=== PATIENT | female | born 1980 | race Caucasian/White ===

== ENCOUNTER 2016-11-26 13:37 | Emergency (ER) | payer SELFPAY ==
[2016-11-26 14:03] VITALS: BP 113/65; PULSE 78; TEMP 98; BMI 34.0
--- NOTE | 2016-11-26 14:46 | PDOC ---
History of Present Illness - General Chief Complaint: Sore Throat Stated Complaint: SORE THROAT Time Seen by Provider: 11/26/16 14:07 History Source: Patient Exam Limitations: No Limitations - History of Present Illness Initial Comments: 11/26/16 14:46 Patient came to emergency department for evaluation of sore throat pain, general body aches, and intermittent fevers chills this past week. daughter was diagnosed by swab with influenza last week, did not give Tamiflu as patient symptoms resolved within a few days. has been taking Tylenol and [id number] pain medications. has suffered frequently from tonsillitis and wonders if she has a recurrent strep throat. Timing/Duration: unsure Severity: mild, moderate Modifying Factors: improves with: cold therapy, medication Associated Symptoms: reports: cough, fever/chills, loss of appetite, malaise Past History - Travel Traveled outside of the country in the last 30 days: No Close contact w/someone who was outside of country & ill: No - Past Medical History Allergies/Adverse Reactions: Allergies Allergy/AdvReac Type Severity Reaction Status Date / Time Penicillins Allergy Intermediate Hives Verified 11/26/16 14:00 Home Medications: Ambulatory Orders Tobramycin 0.3% Ophth Soln [Tobrex Ophthalmic Solution -] 2 drop OD Q6HPO #1 drops MDD 4 05/30/16 Asthma: Yes Suicide Attempt (Hx): No Thyroid Disease: No - Immunization History Immunization Up to Date: Yes - Psycho/Social/Smoking Cessation Hx Anxiety: No Suicidal Ideation: No Smoking History: Current some day smoker Have you smoked in the past 12 months: Yes Number of Cigarettes Smoked Daily: 4 Information on smoking cessation initiated: No 'Breaking Loose' booklet given: 02/13/14 Hx Alcohol Use: No Drug/Substance Use Hx: No Substance Use Type: None Review of Systems - Review of Systems Able to Perform ROS?: Yes Is the patient limited Spanish proficient: Yes Constitutional: Yes: Symptoms Reported, See HPI, Fever, Loss of Appetite, Malaise HEENTM: Yes: Symptoms Reported, See HPI, Nose Pain, Nose Congestion Respiratory: Yes: Symptoms reported, See HPI, Cough, Wheezing Integumentary: Yes: Symptoms Reported All Other Systems: Reviewed and Negative *Physical Exam - Vital Signs Last Vital Signs Temp Pulse Resp BP Pulse Ox 98 F 78 19 113/65 97 11/26/16 14:00 11/26/16 14:00 11/26/16 14:00 11/26/16 14:00 11/26/16 14:00 - Physical Exam General Appearance: Yes: Appropriately Dressed HEENT: positive: Pharyngeal Erythema (with some exudate noted on posterior pharynx), Nasal Congestion, Rhinorrhea. negative: TMs Normal (congested, but landmarks visualized) Neck: positive: Tender, Supple, Lymphadenopathy (R), Lymphadenopathy (L) Respiratory/Chest: positive: Lungs Clear, Normal Breath Sounds Cardiovascular: positive: Regular Rate Gastrointestinal/Abdominal: positive: Soft. negative: Tender Musculoskeletal: positive: Normal Inspection Extremity: positive: Normal Capillary Refill, Normal Inspection, Normal Range of Motion. negative: Tender Integumentary: positive: Dry, Warm, Pale Neurologic: positive: oncology physician II-XII NML intact, Fully Oriented, Alert, Normal Mood/ Affect, Normal Response, Motor Strength 5/5 Medical Decision Making - Medical Decision Making 11/26/16 15:22 Rapid strep test negative. Will treat conservatively as mother stated has no insurance to pay for Tamiflu. Understands is probable influenza and understands need for quarantine and conservative treatment. *DC/Admit/Observation/Transfer Diagnosis at time of Disposition: Upper respiratory infection, viral - Discharge Dispostion Disposition: HOME Condition at time of disposition: Stable Admit: No - Patient Instructions Printed Discharge Instructions: DI for Viral Upper Respiratory Infection -- Adult Additional Instructions: Rest, drink lots of fluids: Teas, water, soups, Pedialyte Saltwater gargles Steamy showers/seem to face break up mucus Avoid contact with others until fevers and cough resolved Lots of handwashing and good hygiene Continue [id number]-[id number] medications for symptomatic relief Tylenol or Motrin for fever and pain Followup with private physician in one to 2 days as needed Return to emergency department for worsened symptoms, fevers, dehydration - Post Discharge Activity Work/School Note: Back to Work
== END 2016-11-26 15:25 | disposition home or self-care (01) ==
LOC: JERFT 13:37
DX: J06.9 Acute upper respiratory infection, unspecified (principal); B97.89 Other viral agents as the cause of diseases classified elsewhere
CPT/HCPCS: 87070; 87077; 87430; 99281-25

== ENCOUNTER 2017-07-17 04:31 | Observation (INO) | payer MEDICARE ==
[2017-07-17] MEDS ORDERED: ALBUTEROL SO4 2.5/IPRATROPIUM 0.5 INH SOL 3 ML VIAL.NEB. NEB ONE ×2 (04:59→05:18)
[2017-07-17] MEDS ORDERED: DEXAMETHASONE LIQUID 0.5 MG/5 ML 240 ML BULK BOTTLE PO ONE (04:59)
--- NOTE | 2017-07-17 05:01 | PDOC ---
History of Present Illness - General Stated Complaint: DIFFICULTY BREATHING Time Seen by Provider: 07/17/17 04:43 - History of Present Illness Initial Comments: 07/17/17 05:00 Patient is a 37 y.o. female with a PMH of Asthma (cannot recall date of last exacerbation) who presents c/o shortness of breath. 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 Patient states she tried her Flovent inhaler but it provided little relief. Patient denies any subjective fevers but does endorse chills. Past History - Past Medical History Allergies/Adverse Reactions: Allergies Allergy/AdvReac Type Severity Reaction Status Date / Time Penicillins Allergy Intermediate Hives Verified 07/17/17 05:05 Home Medications: Ambulatory Orders Tobramycin 0.3% Ophth Soln [Tobrex Ophthalmic Solution -] 2 drop OD Q6HPO #1 drops MDD 4 05/30/16 Asthma: Yes Thyroid Disease: No - Immunization History Immunization Up to Date: Yes - Suicide/Smoking/Psychosocial Hx Smoking History: Current some day smoker Have you smoked in the past 12 months: Yes Number of Cigarettes Smoked Daily: 4 'Breaking Loose' booklet given: 02/13/14 Hx Alcohol Use: No Drug/Substance Use Hx: No Substance Use Type: None Review of Systems - Review of Systems Constitutional: Yes: Chills. No: Fever Respiratory: Yes: Shortness of Breath. No: Cough Cardiac (ROS): No: Chest Pain *Physical Exam - Physical Exam General Appearance: Yes: Nourished, Obese HEENT: positive: Normal ENT Inspection. negative: TM Bulging, TM Dull, TM Erythema Neck: positive: Trachea midline, Supple Respiratory/Chest: positive: Wheezing (B/L wheezing in upper lung osborne). negative: Accessory Muscle Use, Labored Respiration, Crackles, Rhonchi Cardiovascular: positive: S1, S2 Neurologic: positive: Fully Oriented, Alert Medical Decision Making - Medical Decision Making 07/17/17 05:03 Patient is a 37 y.o. female who presents with shortness of breath with PLAN: 1. Duo Nebs x2 2. Dexamethasone 3. CXR Reassess; likely disposition is home following symptomatic improvement 07/17/17 07:22 Patient awaiting CXR. Patient signed out to Dr. Swanson (Resident) and Dr. Gustafson (Attending). *DC/Admit/Observation/Transfer Diagnosis at time of Disposition: Shortness of breath
[2017-07-17] MEDS ORDERED: DEXAMETHASONE SOD PHOSPHATE 10 MG/1 ML VIAL ONE (05:19)
--- NOTE | 2017-07-17 06:07 | PDOC ---
Attending Attestation - Resident Resident Name: Katherine Vale - HPI HPI: 07/17/17 06:07 Pt comes with wosening SOB that began today at work. 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 - Physicial Exam PE: 07/17/17 21:33 agree with resident exam - Medical Decision Making 07/17/17 21:33 pt will be signed out to the day tea, They will follow CXR and reevaluate and disposition the patient after treatment.
[2017-07-17] MEDS ORDERED: GABAPENTIN 100 MG CAPSULE (FP) ONE (06:20)
--- NOTE | 2017-07-17 07:19 | PDOC ---
*Physical Exam - Vital Signs Last Vital Signs Temp Pulse Resp BP Pulse Ox 98.6 F 102 H 22 140/73 93 L 07/17/17 05:05 07/17/17 05:05 07/17/17 05:05 07/17/17 05:05 07/17/17 05:05 ED Treatment Course - LABORATORY CBC & Chemistry Diagram: 07/17/17 12:35 07/17/17 12:35 - ADDITIONAL ORDERS Additional order review: Laboratory Results 07/17/17 06:50 Urine HCG, Qual Negative 07/17/17 05:15 Influenza Types A,B Antigen (BARB) - Final Nasopharyngeal Swab - Final - Medications Given in the ED: ED Medications Discontinued Medications Generic Name Dose Route Start Last Admin Trade Name Freq PRN Reason Stop Dose Admin Albuterol/Ipratropium 2 amp 07/17/17 04:59 07/17/17 05:31 Duoneb - NEB 07/17/17 05:00 2 amp ONCE ONE Administration Dexamethasone 10 mg 07/17/17 04:59 07/17/17 05:31 Decadron Liquid - PO 07/17/17 05:00 10 mg ONCE ONE Administration Medical Decision Making - Medical Decision Making 07/17/17 07:19 37 y.o. female with a PMH of Asthma (cannot recall date of last exacerbation) who presents c/o shortness of breath. Pending Chest X-ray. If negative, pt can be discharged 07/17/17 08:25 Given hx/pe, will order abg and carboxyhemoglobin levels to r/o CO poisoning 07/17/17 10:07 Carboxyhemoglobin levels and CXR questionable. Will order CT chest w/o contrast 07/17/17 11:[address]- patchy, groundglass opacities. Small mediastinal lymph nodes. Call placed to Dr. Navarro. Concern for hypersensitivity pneumonitis vs sarcoidosis. He will come evaluate the patient. Would like to observe the patient for 24 hrs and put patient on standing steroids 07/17/17 12:46 Patient put on IV solumederol 40 bid. Labs drawn. Call placed to hospitalist 07/17/17 12:58 Patient accepted by hospitalist *DC/Admit/Observation/Transfer Diagnosis at time of Disposition: Shortness of breath - Discharge Dispostion Admit: Yes
[2017-07-17 09:28] LABS: ARTERIAL BLD GAS O2 SATURATION 95.9 % (90-98.9); ARTERIAL BLOOD GAS BASE EXCESS -1.1 meq/l (-2-2); ARTERIAL BLOOD GAS HCO3 22.7 meq/L (22-26)
[2017-07-17 09:29] LABS: ALLENS TEST POSITIVE; ART PUNCT SITE LEFT RADIAL; ARTERIAL BLOOD GAS PO2 77.5 mmHg (80-100); LPM/O2% 21%; PT. ON O2? NO; TYPE OF O2 ROOM AIR
[2017-07-17 09:30] LABS: METHEMOGLOBIN 0.7 % (0.4-1.5)
[2017-07-17] MEDS ORDERED: ACETAMINOPHEN 325 MG TABLET (FP) PO ONE (09:51)
[2017-07-17] MEDS ORDERED: ACETAMINOPHEN 325 MG TABLET (FP) ONE (09:58)
--- NOTE | 2017-07-17 12:38 | CON.PULM ---
Consult Consult Specialty:: PULM/CCM Referred by:: CECILIO Reason for Consultation:: SOB - History of Present Illness Chief Complaint: SOB History of Present Illness: 37 F, questionable Asthma (not likely) and history of PNA at [facility] last year ( only had CXR and no CT imaging). Works at a [employer] on [facility] and [employer] at [employer]. Reports being exposed to mold at work in [employer] and significant smoke at the [employer]. Travel to the [facility] a few months ago with her sister. They did use hot tubs and apparently the sister developed an ear infection that the doctor said was due to the hot tub. She did not have overt fever or chills. No hemoptysis. No travel outside of the country. No direct sick contacts. She lives with her sister in the same domicile for years. No evidence of chronic/stagnant water sources. CT chest : scattered bilateral areas of ground glass infiltrates with some non- specific areas of nodules. Non-specific mildly enlarged mediastinal lymph nodes. - History Source History Provided By: Patient Limitations to Obtaining History: No Limitations - Alcohol/Substance Use Hx Alcohol Use: No - Smoking History Smoking history: Current some day smoker Have you smoked in the past 12 months: Yes Aproximately how many cigarettes per day: 4 Home Medications - Allergies Allergies/Adverse Reactions: Allergies Allergy/AdvReac Type Severity Reaction Status Date / Time Penicillins Allergy Intermediate Hives Verified 07/17/17 05:05 - Home Medications Home Medications: Ambulatory Orders Tobramycin 0.3% Ophth Soln [Tobrex Ophthalmic Solution -] 2 drop OD Q6HPO #1 drops MDD 4 05/30/16 Review of Systems - Review of Systems Constitutional: denies: Chills, Fever, Loss of Appetite, Malaise, Night Sweats, Unintentional Wgt. Loss, Weakness Eyes: reports: No Symptoms HENT: reports: No Symptoms Neck: reports: No Symptoms Cardiovascular: reports: Shortness of Breath. denies: Chest Pain, Edema, Palpitations Respiratory: reports: Cough, Snoring, SOB, SOB on Exertion, Wheezing. denies: Hemoptysis Gastrointestinal: reports: No Symptoms Genitourinary: reports: No Symptoms Breasts: reports: No Symptoms Reported Musculoskeletal: reports: No Symptoms Integumentary: reports: No Symptoms Neurological: reports: No Symptoms Endocrine: reports: No Symptoms Hematology/Lymphatic: reports: No Symptoms Psychiatric: reports: No Symptoms Physical Exam Vital Sings: Vital Signs Temperature 98.6 F 07/17/17 05:05 Pulse Rate 77 07/17/17 12:16 Respiratory Rate 16 07/17/17 12:16 Blood Pressure 101/63 07/17/17 12:16 O2 Sat by Pulse Oximetry (%) 99 07/17/17 12:16 Constitutional: Yes: No Distress Eyes: Yes: Conjunctiva Clear, EOM Intact HENT: Yes: Atraumatic, Normocephalic Neck: Yes: Supple, Trachea Midline Cardiovascular: Yes: Regular Rate and Rhythm Respiratory: Yes: CTA Bilaterally, Cough. No: Accessory Muscle Use, Dullness, Rales, Rhonchi, Stridor, Tachypnea, Wheezes ...Inspection: Yes: WNL ...Clubbing: No Gastrointestinal: Yes: Normal Bowel Sounds, Soft, Abdomen, Obese Renal/: Yes: WNL Musculoskeletal: Yes: WNL Extremities: Yes: WNL Edema: No Peripheral Pulses WNL: Yes Integumentary: Yes: WNL Neurological: Yes: WNL, Alert, Oriented ...Motor Strength: WNL Psychiatric: Yes: WNL, Alert, Oriented Labs: ABG Results ABG pH 7.40 (7.35-7.45) 07/17/17 09:18 ABG pCO2 at Pt Temp 37.3 mmHg (35-45) 07/17/17 09:18 ABG pO2 at Pt Temp 77.5 mmHg (80-100) L 07/17/17 09:18 ABG HCO3 22.7 meq/L (22-26) 07/17/17 09:18 ABG O2 Sat (Measured) 95.9 % (90-98.9) 07/17/17 09:18 ABG O2 Content 18.7 % vol (15-22) 07/17/17 09:18 ABG Base Excess -1.1 meq/l (-2-2) 07/17/17 09:18 Imaging - Results Chest X-ray: Report Reviewed, Image Reviewed Cat Scan: Report Reviewed, Image Reviewed Problem List - Problems (1) Shortness of breath Code(s): R06.02 - SHORTNESS OF BREATH (2) Pneumonitis Code(s): J18.9 - PNEUMONIA, UNSPECIFIED ORGANISM (3) Lung nodule, multiple Code(s): R91.8 - OTHER NONSPECIFIC ABNORMAL FINDING OF LUNG FIELD Assessment/Plan Trial of steroids : may be a chronic process based on her history of PNA last year. Suspect at least subacute due to findings of non-specific nodules on imaging. Can give Medrol 40mg Q12h BD TX Would monitor off ABX for now Follow peripheral eosinophil count Serum IgE as an outpatient No smoking counseled -> reports she quit about 1 month ago. O2 as needed Observation monitoring would be appropriate. Will need follow up imaging as an outpatient. Patient also advised to obtain any imaging from [facility] after discharge. Will follow. Thank you. Dr Navarro
[2017-07-17 12:45] LABS: MCH 28.9 pg (25.7-33.7); MCHC 33.5 g/dl (32.0-36.0); MEAN PLT VOLUME 9.1 fl (7.5-11.1); PLATELET COUNT 320 K/MM3 (134-434); RDW 13.6 % (11.6-15.6); WHITE BLOOD COUNT 13.8 K/mm3 (4.0-10.0)
[2017-07-17] MEDS: methylPREDNISolone NA SUCC 40 MG/1 ML VIAL IVPB SCH ×2 (12:50→22:49)
[2017-07-17] MEDS ORDERED: methylPREDNISolone NA SUCC 40 MG/1 ML VIAL ONE ×2 (12:52→22:46)
[2017-07-17 13:19] LABS: ALBUMIN 3.8 g/dl (3.4-5.0); ALK PHOS 115 U/L (45-117); ANION GAP 9 (8-16); BILIRUBIN,TOTAL 0.4 mg/dL (0.2-1.0); CALCIUM 9.3 mg/dL (8.5-10.1); CO2 25 mmol/L (21-32); CREATININE 0.6 mg/dL (0.55-1.02); GLUCOSE,RANDOM 117 mg/dL (74-106); SGOT/AST 14 U/L (15-37); SGPT/ALT 25 U/L (12-78); TOT PROT 8.2 g/dl (6.4-8.2)
--- NOTE | 2017-07-17 13:44 | HP ---
CHIEF COMPLAINT: difficulty breathing, acute asthma exacerbation PCP: HISTORY OF PRESENT ILLNESS: Patient is a 37 year old female with a significant past medical history of of asthma who presents to the ED complaining of shortness of breath and wheezing. 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 Patient attempted to reliever the shortness of breath with her Flovent inhaler but provided very little relief. Patient also reports being exposed to mold at work in [facility]. Denies hemoptysis. Patient denies any subjective fevers but does endorse chills. She is a former smoker but just quick 3 weeks ago. She denies recent travel. No direct sick contacts. ER course was notable for: (1) SoluMedrol 40mg Q12h (2) CT scan with patchy nodular and groundglass opacification throughout both lungs, right >left, uncertain etiology (3) WBC 13.8, afebrile (4) 93% room air on admission Recent Travel: PAST MEDICAL HISTORY: PAST SURGICAL HISTORY: Social History: Smoking: recently quit 3 weeks ago Alcohol: denies Drugs: denies Family History: Allergies Penicillins Allergy (Intermediate, Verified 07/17/17 05:05) Hives HOME MEDICATIONS: Home Medications Medication Instructions Recorded Tobramycin 0.3% Ophth Soln [Tobrex 2 drop OD Q6HPO #1 drops MDD 4 05/30/16 Ophthalmic Solution -] REVIEW OF SYSTEMS CONSTITUTIONAL: Absent: fever, chills, diaphoresis, generalized weakness, malaise, loss of appetite, weight change HEENT: Absent: rhinorrhea, nasal congestion, throat pain, throat swelling, difficulty swallowing, mouth swelling, ear pain, eye pain, visual changes CARDIOVASCULAR: Absent: chest pain, syncope, palpitations, irregular heart rate, lightheadedness , peripheral edema GASTROINTESTINAL: Absent: abdominal pain, abdominal distension, nausea, vomiting, diarrhea, constipation, melena, hematochezia GENITOURINARY: Absent: dysuria, frequency, urgency, hesitancy, hematuria, flank pain, genital pain MUSCULOSKELETAL: Absent: myalgia, arthralgia, joint swelling, back pain, neck pain SKIN: Absent: rash, itching, pallor HEMATOLOGIC/IMMUNOLOGIC: Absent: easy bleeding, easy bruising, lymphadenopathy, frequent infections ENDOCRINE: Absent: unexplained weight gain, unexplained weight loss, heat intolerance, cold intolerance NEUROLOGIC: Absent: headache, focal weakness or paresthesias, dizziness, unsteady gait, seizure, mental status changes, bladder or bowel incontinence PSYCHIATRIC: Absent: anxiety, depression, suicidal or homicidal ideation, hallucinations. PHYSICAL EXAMINATION GENERAL: Awake, alert, and fully oriented, in no acute distress. HEAD: Normal with no signs of trauma. EYES: Pupils equal, round and reactive to light, extraocular movements intact, sclera anicteric, conjunctiva clear. No lid lag. EARS, NOSE, THROAT: Ears normal, nares patent, oropharynx clear without exudates. Moist mucous membranes. NECK: Normal range of motion, supple without lymphadenopathy, JVD, or masses. LUNGS:+ wheezing throughout lung osborne, tolerating room air HEART: Regular rate and rhythm, normal S1 and S2 without murmur, rub or gallop. ABDOMEN: Soft, nontender, not distended, normoactive bowel sounds, no guarding, no rebound, no masses. No hepatomegaly or splenomegaly. MUSCULOSKELETAL: Normal range of motion at all joints. No bony deformities or tenderness. No CVA tenderness. UPPER EXTREMITIES: 2+ pulses, warm, well-perfused. No cyanosis. No clubbing. No peripheral edema. LOWER EXTREMITIES: 2+ pulses, warm, well-perfused. No calf tenderness. No peripheral edema. NEUROLOGICAL: Cranial nerves II-XII intact. Normal speech. Normal gait. PSYCHIATRIC: Cooperative. Good eye contact. Appropriate mood and affect. SKIN: Warm, dry, normal turgor, no rashes or lesions noted, normal capillary refill. ASSESSMENT/PLAN: Patient is a 37 year old female with a significant past medical history of of asthma who presents to the ED complaining of shortness of breath and wheezing. Patient presently works at a [employer] and states that there was alot of smoke in the lounge overnight from [employer] pipes. Patient attempted to relieve the shortness of breath with her Flovent inhaler but provided very little relief. Patient also reports being exposed to mold at work in [facility]. Denies hemoptysis. Patient denies any subjective fevers but does endorse chills. She is a former smoker but just quick 3 weeks ago. She denies recent travel. No direct sick contacts. Pulmonary Acute asthma exacerbation/Shortness of breath, acute on chronic A/P: Monitor patient on room air, supplemental oxygen as needed On Solumedrol 40mg q12 IVPB [address] scan with patchy nodular and groundglass opacification throughout both lungs , right >left, uncertain etiology WBC 13.8, but remains afebrile, monitor off antibiotics As per pulmonary, will need IgE monitoring outpatient as well as follow up imaging of CT scan Monitor labs, respiratory status F.E.N. Fluids: tolerating PO Electrolytes: monitor Nutrition: regular diet Prophylaxis DVT: LOS <48 hours GI: Protonix while on steriods Disposition: observation. full code. Visit type - Emergency Visit Emergency Visit: Yes ED Registration Date: 07/17/17 Care time: The patient presented to the Emergency Department on the above date and was hospitalized for further evaluation of their emergent condition. - New Patient This patient is new to me today: Yes Date on this admission: 07/17/17 - Critical Care Critical Care patient: No
[2017-07-17 15:37] VITALS: BMI 36.3
[2017-07-18 07:49] LABS: MCH 28.6 pg (25.7-33.7); MCHC 32.9 g/dl (32.0-36.0); MEAN PLT VOLUME 9.9 fl (7.5-11.1); PLATELET COUNT 313 K/MM3 (134-434); RDW 13.6 % (11.6-15.6); WHITE BLOOD COUNT 26.1 K/mm3 (4.0-10.0)
[2017-07-18] MEDS ORDERED: ACETAMINOPHEN 650 MG/20.3 ML ORAL SOLUTION (CUPS) PO PRN (07:56)
[2017-07-18 08:43] LABS: ANION GAP 11 (8-16); CALCIUM 9.2 mg/dL (8.5-10.1); CO2 22 mmol/L (21-32); CREATININE 0.5 mg/dL (0.55-1.02); GLUCOSE,RANDOM 122 mg/dL (74-106); MAGNESIUM 2.2 mg/dL (1.8-2.4)
[2017-07-18 09:29] LABS: PLATELET ESTIMATE ADEQUATE (NORMAL); TOTAL CELLS COUNTED 100
[2017-07-18] MEDS ORDERED: PANTOPRAZOLE 40 MG TABLET (FP) PO SCH (10:00)
[2017-07-18] MEDS: methylPREDNISolone NA SUCC 40 MG/1 ML VIAL IVPB SCH (10:10)
[2017-07-18 12:52] LABS: BASOPHIL 0.4 % (0-2.0); EOSINOPHIL 0.1 % (0-4.5); MCH 28.5 pg (25.7-33.7); MCHC 32.7 g/dl (32.0-36.0); MEAN PLT VOLUME 9.5 fl (7.5-11.1); NEUTROPHILS 87.9 % (42.8-82.8); PLATELET COUNT 349 K/MM3 (134-434); RDW 13.4 % (11.6-15.6); WHITE BLOOD COUNT 27.5 K/mm3 (4.0-10.0)
--- NOTE | 2017-07-18 12:57 | PN ---
Progress Note, Physician History of Present Illness: pulmonary alert,nad,sob,min cough - Current Medication List Current Medications: Active Medications Acetaminophen (Tylenol Oral Solution -) 650 mg PO Q4H PRN PRN Reason: FEVER OR PAIN Methylprednisolone Sodium Succinate (Solu-Medrol -) 40 mg IVPB BID [facility] Last Admin: 07/18/17 10:10 Dose: 40 mg Pantoprazole Sodium (Protonix -) 40 mg PO DAILY [facility] Last Admin: 07/18/17 10:10 Dose: 40 mg - Objective Vital Signs: Vital Signs Temperature 98.1 F 07/18/17 11:42 Pulse Rate 66 07/18/17 11:42 Respiratory Rate 20 07/18/17 11:42 Blood Pressure 109/74 07/18/17 11:42 O2 Sat by Pulse Oximetry (%) 98 07/18/17 11:42 Constitutional: Yes: Well Nourished, Calm Eyes: Yes: WNL HENT: Yes: WNL Neck: Yes: WNL Cardiovascular: Yes: Regular Rate and Rhythm, S1, S2 Respiratory: Yes: CTA Bilaterally Gastrointestinal: Yes: Normal Bowel Sounds, Soft Extremities: Yes: WNL Edema: No Labs: CBC, BMP 07/18/17 06:00 Assessment/Plan Imaging - Results Chest X-ray: Report Reviewed, Image Reviewed Cat Scan: Report Reviewed, Image Reviewed Problem List - Problems (1) Shortness of breath Code(s): R06.02 - SHORTNESS OF BREATH (2) Pneumonitis Code(s): J18.9 - PNEUMONIA, UNSPECIFIED ORGANISM (3) Lung nodule, multiple Code(s): R91.8 - OTHER NONSPECIFIC ABNORMAL FINDING OF LUNG FIELD Assessment/Plan Prednisone 60mg po daily BD prn Follow peripheral eosinophil count Serum IgE level No smoking counseled -> reports she quit about 1 month ago. O2 as needed Will need follow up imaging as an outpatient. Pfts outpatient DR CASAS
--- NOTE | 2017-07-18 13:30 | DS ---
Physical Exam: SUBJECTIVE: Patient seen and examined at the bedside. She denies any shortness of breath. Does verbalize anxiety overnight. OBJECTIVE: Vital Signs Period Temp Pulse Resp BP Sys/Hunt Pulse Ox Last 24 Hr 97.9 F-98.1 F 66-101 17-20 109-148/63-77 93-98 PHYSICAL EXAM GENERAL: Awake, alert, and fully oriented, in no acute distress. HEAD: Normal with no signs of trauma. EYES: Pupils equal, round and reactive to light, extraocular movements intact, sclera anicteric, conjunctiva clear. No lid lag. EARS, NOSE, THROAT: Ears normal, nares patent, oropharynx clear without exudates. Moist mucous membranes. NECK: Normal range of motion, supple without lymphadenopathy, JVD, or masses. LUNGS: No wheezing, no accessory muscle use, comfortable on room air HEART: Regular rate and rhythm, normal S1 and S2 without murmur, rub or gallop. ABDOMEN: Soft, nontender, not distended, normoactive bowel sounds, no guarding, no rebound, no masses. No hepatomegaly or splenomegaly. MUSCULOSKELETAL: Normal range of motion at all joints. No bony deformities or tenderness. No CVA tenderness. UPPER EXTREMITIES: 2+ pulses, warm, well-perfused. No cyanosis. No clubbing. No peripheral edema. LOWER EXTREMITIES: 2+ pulses, warm, well-perfused. No calf tenderness. No peripheral edema. NEUROLOGICAL: Normal speech. Normal gait. PSYCHIATRIC: Cooperative. Good eye contact. Appropriate mood and affect. SKIN: Warm, dry, normal turgor, no rashes or lesions noted, normal capillary refill. LABS Laboratory Results - last 24 hr 07/18/17 07/18/17 07/18/17 06:00 06:00 12:30 WBC 26.1 H D 27.5 H RBC 4.82 4.86 Hgb 13.8 13.8 Hct 42.0 42.3 MCV 87.0 87.0 MCH 28.6 28.5 MCHC 32.9 32.7 RDW 13.6 13.4 Plt Count 313 349 MPV 9.9 9.5 Total Counted 100 Neutrophils % 87.9 H D Neutrophils % (Manual) 90 H Lymphocytes % 8.2 D Lymphocytes % (Manual) 8 Monocytes % 3.4 L Monocytes % (Manual) 2 L Eosinophils % 0.1 D Basophils % 0.4 Platelet Estimate Adequate Sodium 137 Potassium 4.2 Chloride 104 Carbon Dioxide 22 Anion Gap 11 BUN 11 Creatinine 0.5 L Random Glucose 122 H Calcium 9.2 Magnesium 2.2 HOSPITAL COURSE: Date of Admission:07/17/17 Date of Discharge: 07/18/17 ASSESSMENT/PLAN: Patient is a 37 year old female with a significant past medical history of of asthma who presents to the ED complaining of shortness of breath and wheezing. 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 Patient attempted to relieve the shortness of breath with her Flovent inhaler but provided very little relief. Patient also reports being exposed to mold at work in [facility]. Denies hemoptysis. Patient denies any subjective fevers but does endorse chills. She is a former smoker but just quick 3 weeks ago. She denies recent travel. No direct sick contacts. Pulmonary Acute asthma exacerbation/Shortness of breath, acute on chronic - improved A/P: Lungs sound improved after initiating steroid therapy, no longer wheezing Monitor patient on room air, which she has been tolerating, no need for supplemental oxygen/oxygen sats on room air 96% Respiratory pre and post as per RN remains at 96% room air. Will discharge on a [address] scan with patchy nodular and groundglass opacification throughout both lungs , right >left, uncertain etiology - to be repeated as an outpatient WBC 27, likely secondary to high dose steriods. She remains afebrile, monitor off antibiotics, repeat labs with new PCP after steriods complete As per pulmonary, will need IgE monitoring outpatient as well as follow up imaging of CT scan, pt aware and in agreement Disposition: Cleared by pulmonary for discharge. Full code. Minutes to complete discharge: 60 Discharge Summary Reason For Visit: SOB Current Active Problems Lung nodule, multiple (Acute) Pneumonitis (Acute) Shortness of breath (Acute) Condition: Improved - Instructions Diet, Activity, Other Instructions: Ms. Nayak: Please take the Prednisone as follows and do not stop taking abruptly. Prednisone must be tapered off slowly (10 day taper) so that you do not have symptoms: Date: Take: 07/18/2017 Prednisone 60mg tonight at 5pm 07/19/2017 Prednisone 60mg in the morning (9am) 07/20/2017 Prednisone 50mg in the morning (9am) 07/21/2017 Prednisone 50mg in the morning (9am) 07/22/2017 Prednisone 40mg in the morning (9am) 07/23/2017 Prednisone 40mg in the morning (9am) 07/24/2017 Prednisone 30mg in the morning (9am) 07/25/2017 Prednisone 30mg in the morning (9am) 07/26/2017 Prednisone 20mg in the morning (9am) 07/27/2017 Prednisone 10mg in the morning (9am) - this is the last dose Please follow up with Dr. Sauer, your new PCP and Dr. Mulligan (medical records receptionist). You will need a repeat CT scan in about 3 weeks. Your medications have been called to [facility]: The cost for the Prednisone is $20.00 dollars and the cost for the Albuterol pump is $55.00. Please call me with any questions that you may have. [facility] FOR[facility] ANTHROPOLOGIST [facility] [phone] Referrals: Andrei Goodrich MD [Staff Physician] - Vince Mulligan MD [Staff Physician] - Jeniffer Frank MD [Staff Physician] - Disposition: HOME - Home Medications Comprehensive Discharge Medication List: Ambulatory Orders Tobramycin 0.3% Ophth Soln [Tobrex Ophthalmic Solution -] 2 drop OD Q6HPO #1 drops MDD 4 05/30/16 Albuterol Sulfate Inhaler - [Ventolin HFA Inhaler -] 1 puff IH Q4H #1 inhaler Prednisone See Taper PO DAILY #60 tablet 07/18/17 This patient is new to me today: No Emergency Visit: Yes ED Registration Date: 07/17/17 Care time: The patient presented to the Emergency Department on the above date and was hospitalized for further evaluation of their emergent condition. Critical Care patient: No - Discharge Referral Referred to [facility] Yes Physician Referral: Jeniffer Frank MD ([facility])
[2017-07-18 14:58] VITALS: BP 115/59; PULSE 73; TEMP 98.3
== END 2017-07-18 15:41 | disposition home or self-care (01) ==
LOC: JER 04:31 → JERBED 12:59 → J5S 07-18 12:12
PROVIDERS: ADMIT Internal Medicine; ATTEND Nurse Practitioner Family
PROC: 3E0333Z Introduction of Anti-inflammatory into Peripheral Vein, Percutaneous Approach (ICD-10-PCS; principal; 2017-07-17)
PROC: 3E0F7GC Introduction of Other Therapeutic Substance into Respiratory Tract, Via Natural or Artificial Opening (ICD-10-PCS; 2017-07-17)
DX: J18.9 Pneumonia, unspecified organism (principal); R06.02 Shortness of breath; R91.8 Other nonspecific abnormal finding of lung field; F17.210 Nicotine dependence, cigarettes, uncomplicated; Z88.0 Allergy status to penicillin; J45.909 Unspecified asthma, uncomplicated
CPT/HCPCS: 36415; 36600; 71020-TC; 71250-TC; 80048; 80053; 82375; 82803; 83050; 83735; 84703; 85025; 85027; 87804; 94640; 94761; 96374; 99285-25; G0378

== ENCOUNTER 2017-07-31 13:14 | Emergency (ER) | payer MEDICARE, OTHER ==
[2017-07-31 14:18] VITALS: BP 108/62; PULSE 88; TEMP 98.4; BMI 37.8
[2017-07-31] MEDS ORDERED: IBUPROFEN 600 MG TABLET (FP) PO ONE ×2 (15:33→15:36)
--- NOTE | 2017-07-31 15:36 | PDOC ---
History of Present Illness - General Chief Complaint: Sore Throat Stated Complaint: SORE THROAT Time Seen by Provider: 07/31/17 14:52 History Source: Patient Exam Limitations: No Limitations - History of Present Illness Initial Comments: 07/31/17 15:35 Chief complaint: Sore throat, right ear pain 2 days History of present illness: Patient is a 37-year-old female with a history of asthma here today complaining of a severe sore throat and right ear pain 2 days. Patient also reports swelling lymph nodes of her neck. Patient denies any nasal congestion, cough, nausea, vomiting or diarrhea. Denies any chance of . Patient has been around her sister has been ill with similar symptoms. Timing/Duration: getting worse Severity: moderate Associated Symptoms: reports: other (right ear pain, sore throat x 2 days ) Past History - Past Medical History Allergies/Adverse Reactions: Allergies Allergy/AdvReac Type Severity Reaction Status Date / Time Penicillins Allergy Intermediate Hives Verified 07/31/17 14:18 Home Medications: Ambulatory Orders Azithromycin [Zithromax 250mg Tablets -] 250 mg PO UTDICT #6 tab 07/31/17 Prednisone [Deltasone -] 20 mg PO DAILY 07/31/17 Asthma: Yes Thyroid Disease: No - Immunization History Immunization Up to Date: Yes - Suicide/Smoking/Psychosocial Hx Smoking History: Never smoked Have you smoked in the past 12 months: Yes Number of Cigarettes Smoked Daily: 0 If you are a former smoker, when did you quit?: 06/12/2017 Information on smoking cessation initiated: No 'Breaking Loose' booklet given: 02/13/14 Hx Alcohol Use: No Drug/Substance Use Hx: No Substance Use Type: None Review of Systems - Review of Systems Able to Perform ROS?: Yes Constitutional: No: Symptoms Reported HEENTM: Yes: Ear Pain (right ), Throat Pain Respiratory: No: Symptoms reported Cardiac (ROS): No: Symptoms Reported ABD/GI: No: Symptoms Reported : No: Symptoms Reported Musculoskeletal: No: Symptoms Reported Integumentary: No: Symptoms Reported Neurological: No: Symptoms reported *Physical Exam - Vital Signs Last Vital Signs Temp Pulse Resp BP Pulse Ox 98.4 F 88 16 108/62 100 07/31/17 14:15 07/31/17 14:15 07/31/17 14:15 07/31/17 14:15 07/31/17 14:15 - Physical Exam General Appearance: Yes: Appropriately Dressed HEENT: positive: TMs Normal (left ), Pharyngeal Erythema, Tonsillar Erythema ( with no tonsillar deviation ), TM Bulging (right ), TM Erythema (right ). negative: Tonsillar Exudate, Nasal Congestion, Rhinorrhea, Sinus Tenderness Neck: positive: Lymphadenopathy (R), Lymphadenopathy (L) Respiratory/Chest: positive: Lungs Clear, Normal Breath Sounds. negative: Chest Tender, Respiratory Distress Cardiovascular: positive: Regular Rhythm, Regular Rate, S1, S2 Integumentary: positive: Normal Color Neurologic: positive: Alert, Normal Response, Responsive Medical Decision Making - Medical Decision Making 07/31/17 15:36 Patient is a 37-year-old female with a history of asthma here today complaining of a severe sore throat and right ear pain 2 days. Patient also reports swelling lymph nodes of her neck. Patient denies any nasal congestion, cough, nausea, vomiting or diarrhea. Denies any chance of . Patient has been around her sister has been ill with similar symptoms.Pt. has severe PCN allergy. 'tonsillitis right otitis media PLAN: azithromycin 250 mg 2 tabs today than one daily for following 4 days ibuprofen 600 mg po now *DC/Admit/Observation/Transfer Diagnosis at time of Disposition: Acute tonsillitis Qualifiers: Pharyngitis/tonsillitis etiology: unspecified etiology Qualified Code(s): J03.90 - Acute tonsillitis, unspecified; J03.90 - Acute tonsillitis, unspecified Otitis media Qualifiers: Otitis media type: suppurative Chronicity: acute Laterality: right Recurrence: not specified as recurrent Spontaneous tympanic membrane rupture: without spontaneous rupture Qualified Code(s): H66.001 - Acute suppurative otitis media without spontaneous rupture of ear drum, right ear; H66.001 - Acute suppurative otitis media without spontaneous rupture of ear drum, right ear - Discharge Dispostion Disposition: HOME Condition at time of disposition: Stable - Prescriptions Prescriptions: Azithromycin [Zithromax 250mg Tablets -] 250 mg PO UTDICT #6 tab - Patient Instructions Additional Instructions: Take Ibuprofen as needed as directed by bilingual teacher aide for pain Return to emergency room if symptoms worsen or new symptoms develop Follow up with your Primary care provider within the next few days Drink a lot a fluids and rest Patient voiced understanding of discharge instructions and all questions were answered Thank you for choosing [facility] emergency room for medical needs today
== END 2017-07-31 15:46 | disposition home or self-care (01) ==
LOC: JER 13:14 → JERFT 13:14
DX: J03.90 Acute tonsillitis, unspecified (principal); H66.001 Acute suppurative otitis media without spontaneous rupture of ear drum, right ear
CPT/HCPCS: 99281-25

== ENCOUNTER 2018-03-28 23:45 | Emergency (ER) | payer OTHER ==
[2018-03-29] MEDS ORDERED: IBUPROFEN 400 MG TABLET (FP) PO ONE ×2 (02:22→03:14)
--- NOTE | 2018-03-29 02:36 | PDOC ---
History of Present Illness - General Chief Complaint: Pain Stated Complaint: FOOT INJURY Time Seen by Provider: 03/29/18 01:55 History Source: Patient - History of Present Illness Initial Comments: 03/29/18 03:45 38 year old female with right heel pain worse with prolonged standing and walking x 2 weeks. 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 denies trauma or injury 03/29/18 03:45 Past History - Past Medical History Allergies/Adverse Reactions: Allergies Allergy/AdvReac Type Severity Reaction Status Date / Time Penicillins Allergy Intermediate Hives Verified 03/29/18 02:44 Home Medications: Ambulatory Orders Ibuprofen 800 mg PO QID PRN #20 tablet 03/29/18 Asthma: Yes Thyroid Disease: No - Immunization History Immunization Up to Date: Yes - Suicide/Smoking/Psychosocial Hx Smoking History: Never smoked Have you smoked in the past 12 months: Yes Number of Cigarettes Smoked Daily: 0 If you are a former smoker, when did you quit?: 06/12/2017 'Breaking Loose' booklet given: 02/13/14 Hx Alcohol Use: No Drug/Substance Use Hx: No Substance Use Type: None Review of Systems - Review of Systems Able to Perform ROS?: Yes Is the patient limited Yoruba proficient: No Musculoskeletal: Yes: Other (heel pain) *DC/Admit/Observation/Transfer Diagnosis at time of Disposition: Plantar fasciitis, right - Discharge Dispostion Disposition: HOME Condition at time of disposition: Fair - Prescriptions Prescriptions: Ibuprofen 800 mg PO QID PRN #20 tablet PRN Reason: Moderate Pain Ibuprofen 800 mg PO QID PRN #20 tablet PRN Reason: Moderate Pain - Referrals Referrals: Yesika Roijas DPM [Staff Physician] - - Patient Instructions Printed Discharge Instructions: Plantar Fasciitis Additional Instructions: apply ICE intermittently take ibuprofen every 6 hours as needed for pain follow up with your doctor as soon as possible. - Post Discharge Activity Forms/Work/School Notes: Back to Work
[2018-03-29 02:44] VITALS: BP 111/73; PULSE 85; TEMP 97.9; BMI 37.9
--- NOTE | 2018-03-29 03:12 | PDOC ---
*Physical Exam - Vital Signs Last Vital Signs Temp Pulse Resp BP Pulse Ox 97.9 F 85 18 111/73 98 03/29/18 02:38 03/29/18 02:38 03/29/18 02:38 03/29/18 02:38 03/29/18 02:38 Medical Decision Making - Medical Decision Making 03/29/18 03:12 agree with care from [facility] *DC/Admit/Observation/Transfer Diagnosis at time of Disposition: Plantar fasciitis, right - Discharge Dispostion Disposition: HOME Condition at time of disposition: Fair - Prescriptions Prescriptions: Ibuprofen 800 mg PO QID PRN #20 tablet PRN Reason: Moderate Pain - Referrals Referrals: Yesika Riojas DPM [Staff Physician] - - Patient Instructions Printed Discharge Instructions: Plantar Fasciitis Additional Instructions: apply ICE intermittently take ibuprofen every 6 hours as needed for pain follow up with your doctor as soon as possible. - Post Discharge Activity Forms/Work/School Notes: Back to Work
== END 2018-03-29 05:17 | disposition home or self-care (01) ==
LOC: JER 23:45
DX: M72.2 Plantar fascial fibromatosis (principal); Z87.891 Personal history of nicotine dependence
CPT/HCPCS: 73630-TC-RT-FY; 99281-25

== ENCOUNTER 2019-02-08 09:57 | Emergency (ER) | payer OTHER ==
[2019-02-08 10:12] VITALS: BP 112/55; PULSE 65; TEMP 98.2; BMI 39.4
[2019-02-08] MEDS ORDERED: IBUPROFEN 600 MG TABLET (FP) PO ONE ×2 (10:51→10:55)
--- NOTE | 2019-02-08 10:54 | PDOC ---
History of Present Illness - General Chief Complaint: Injury Stated Complaint: SLIP AND FALL Time Seen by Provider: 02/08/19 10:45 History Source: Patient Exam Limitations: No Limitations - History of Present Illness Initial Comments: 02/08/19 10:53 Slipped while at work, falling onto both knees, worse on the left than the right. Patient states is exquisite pain to knee and upper tibia. Used ice last night and Motrin but has persistent pain that severe e. Occurred: reports: yesterday Severity: reports: moderate, severe Pain Location: reports: lower extremity (left knee ) Method of Injury: Yes: fall Modifying Factors: improves with: cold therapy, pain medication Associated Symptoms (Fall): denies symptoms Past History - Travel Traveled outside of the country in the last 30 days: No Close contact w/someone who was outside of country & ill: No - Past Medical History Allergies/Adverse Reactions: Allergies Allergy/AdvReac Type Severity Reaction Status Date / Time Penicillins Allergy Intermediate Hives Verified 02/08/19 10:12 Home Medications: Ambulatory Orders Cyclobenzaprine HCl 5 mg PO HS 06/11/18 Meloxicam 15 mg PO DAILY 06/11/18 Hostetter-3/Dha/Epa/Fish Oil [Fish Oil 1,000 mg Softgel] 1 each PO Q7D 06/11/18 Semaglutide [Ozempic] 2 mg SQ Q7D 06/11/18 Sulfamethoxazole/Trimethoprim [Sulfamethoxazole-Tmp Ds Tablet] 1 each PO BID 06/20 Naproxen [Naprosyn -] 500 mg PO BID #30 tablet 02/08/19 Asthma: Yes COPD: No Thyroid Disease: No - Immunization History Immunization Up to Date: Yes - Suicide/Smoking/Psychosocial Hx Smoking History: Never smoked Have you smoked in the past 12 months: Yes Number of Cigarettes Smoked Daily: 0 If you are a former smoker, when did you quit?: 06/12/2017 'Breaking Loose' booklet given: 02/13/14 Hx Alcohol Use: No Drug/Substance Use Hx: No Substance Use Type: None Review of Systems - Review of Systems Able to Perform ROS?: Yes Is the patient limited Hungarian proficient: Yes Constitutional: Yes: Symptoms Reported, See HPI, Malaise. No: Fever Respiratory: No: Symptoms reported Musculoskeletal: Yes: Symptoms Reported, See HPI, Joint Pain, Joint Swelling, Muscle Weakness All Other Systems: Reviewed and Negative *Physical Exam - Vital Signs Last Vital Signs Temp Pulse Resp BP Pulse Ox 98.2 F 65 16 112/55 L 98 02/08/19 10:02/08/19 10:02/08/19 10:02/08/19 10:02/08/19 10:09 - Physical Exam General Appearance: Yes: Nourished, Appropriately Dressed, Apparent Distress, Moderate Distress HEENT: positive: NATHEN, Normal ENT Inspection, TMs Normal, Pharynx Normal Neck: positive: Supple. negative: Tender, Lymphadenopathy (R), Lymphadenopathy (L) Respiratory/Chest: positive: Lungs Clear, Normal Breath Sounds Gastrointestinal/Abdominal: positive: Soft. negative: Tender Musculoskeletal: positive: Decreased Range of Motion. negative: Normal Inspection, CVA Tenderness (L), Vertebral Tenderness Extremity: positive: Normal Inspection, Tender. negative: Normal Range of Motion Integumentary: positive: Normal Color, Dry, Swelling, Bruising Neurologic: positive: concert promoter II-XII NML intact, Fully Oriented, Alert, Normal Mood/ Affect, Normal Response Progress Note - Progress Note Progress Note: X-ray negative for fractures or dislocations, knee immobilizer placed, and patient will up with orthopedist for further evaluation next week if pain persists. *DC/Admit/Observation/Transfer Diagnosis at time of Disposition: Left knee sprain Qualifiers: Encounter type: initial encounter Involved ligament of knee: unspecified ligament Qualified Code(s): S83.92XA - Sprain of unspecified site of left knee, initial encounter - Discharge Dispostion Disposition: HOME Condition at time of disposition: Stable Decision to Admit order: No - Referrals Referrals: Trent Estrada MD [Staff Physician] - - Patient Instructions Printed Discharge Instructions: DI for Knee Sprain Additional Instructions: Rest, ice to area on and off for 15 minutes 4-6 times a day Avoid heavy lifting or exercise until pain and swelling is resolved or until further directed Keep area highly elevated to reduce swelling Use splints/Sathish wrap as directed Followup with orthopedist in one to 2 days if not improving, if significantly improved may wait one week for followup with orthopedist May use Naprosyn 1500 milligrams tablet every 12 hours for the next 3 days then as needed for pain - Post Discharge Activity Forms/Work/School Notes: Back to Work
== END 2019-02-08 12:11 | disposition home or self-care (01) ==
LOC: JERFT 09:57
DX: S83.8X2A Sprain of other specified parts of left knee, initial encounter (principal); W01.0XXA Fall on same level from slipping, tripping and stumbling without subsequent striking against object, initial encounter; Y93.89 Activity, other specified; Y92.59 Other trade areas as the place of occurrence of the external cause; Y99.0 Civilian activity done for income or pay
CPT/HCPCS: 73562-TC-LT-FY; 99281-25